=== PATIENT | male | born 1960 | race African-American/Black ===

== ENCOUNTER 2020-07-15 11:55 | Emergency (ER) | payer BC, SELFPAY ==
[2020-07-15 12:16] VITALS: BP 159/92; PULSE 94; RESP 20; TEMP 36.6; O2SAT 99
--- NOTE | 2020-07-15 12:26 | ED.GENADULT ---
HPI - General Adult General Chief complaint: Dental/Oral Stated complaint: Dental/Oral Time Seen by Provider: 07/15/20 12:27 Source: patient Mode of arrival: ambulatory Limitations: no limitations History of Present Illness HPI narrative: 60-year-old male patient presents to the [facility] with complaints of right upper dental pain x1 week. Patient states he has had issues with his teeth before and has had multiple infections and has had multiple teeth pulled. Patient states is been bothering him for about a week now and he has been taking some Aleve for the pain which has helped at times. Denies any fevers, body aches or chills. Related Data Allergies Allergy/AdvReac Type Severity Reaction Status Date / Time No Known Allergies Allergy Verified 07/15/20 12:32 Review of Systems Review of Systems: Narrative: CONSTITUTIONAL: Denies fever, chills, or sweats. EYES: Denies visual changes, redness, or discharge. ENT: Denies rhinorrhea, congestion, sore throat, or otalgia. Positive right upper dental pain x1 week CARDIOVASCULAR: Denies chest pain, palpitations, or edema. RESPIRATORY: Denies cough or dyspnea. GASTROINTESTINAL: Denies abdominal pain, nausea, vomiting, or diarrhea. GENITOURINARY: Denies dysuria or hematuria. SKIN: Denies rash or itching. MUSCULOSKELETAL: Denies back pain, joint pain, or myalgia. NEUROLOGIC: Denies headache, numbness, or weakness. PSYCHIATRIC: Denies anxiety or depression. PMFSH Past Medical History Medical History (Updated 07/15/20 @ 12:32 by JAE Tucker) No significant past medical history Social History Social History (Updated 07/15/20 @ 12:28 by JAE Tucker) Smoking status: Current every day smoker Comments At the time of my signature I agree with nursing past medical history, surgical, social, and family history. There is no relevant family history pertinent to the presenting complaint. Exam Narrative: Exam Narrative: GENERAL: Well-appearing, well-nourished, and in no acute distress. HEAD: Normocephalic, atraumatic. EYES: PERRLA and EOMI. ENT: Nares clear, no rhinorrhea or epistaxis. Mucous membranes moist. Patient has some erythema and edema noted around the gum of the right upper canine. There is no obvious abscess or discharge noted at this time. There is tenderness noted on palpitation to the gum. NECK: Supple. No lymphadenopathy CHEST: Clear to auscultation. No respiratory distress. HEART: Regular rate and rhythm. No murmur heard. Normal peripheral pulses. ABDOMEN: Soft, nontender, nondistended, normal active bowel sounds. EXTREMITIES: Normal range of motion. No edema. SKIN: Warm, dry, no rash. NEURO: No focal deficits. Alert and oriented x3. Course Vital Signs Vital signs: Vital Signs Temperature 36.6 C 07/15/20 12:16 Pulse Rate 94 07/15/20 12:16 Respiratory Rate 20 07/15/20 12:16 Blood Pressure 159/92 H 07/15/20 12:16 Pulse Oximetry 99 07/15/20 12:16 Temperature 36.6 C 07/15/20 12:16 Pulse Rate 94 07/15/20 12:16 Respiratory Rate 20 07/15/20 12:16 Blood Pressure 159/92 H 07/15/20 12:16 Pulse Oximetry 99 07/15/20 12:16 Vital signs reviewed The patient has been informed that they may have pre-hypertension or Hypertension based on a BP reading in the department. I recommend that the patient call the primary care provider listed on their discharge instructions or a physician of their choice this week to arrange follow up for further evaluation of possible pre-hypertension or Hypertension Medical Decision Making Differential Diagnosis Differential Diagnosis: Differential diagnosis: Dental caries, periodontal disease, avulsed tooth, tooth infections, mandibular infection, Dimitry's angiana, upper tooth infection, dry socket, gingivitis, acute necrotizing ulcerative gingivitis, sialolithiasis. Discussed with patient we will go ahead and discharge him home with an antibiotic to help with the infection as well as some nap
--- NOTE | 2020-07-15 12:36 | ED.GENADULT ---
HPI - General Adult General Chief complaint: Dental/Oral Stated complaint: Dental/Oral Time Seen by Provider: 07/15/20 12:27 Source: patient Mode of arrival: ambulatory Limitations: no limitations Related Data Allergies Allergy/AdvReac Type Severity Reaction Status Date / Time No Known Allergies Allergy Verified 07/15/20 12:32 [facility] Past Medical History Medical History (Updated 07/15/20 @ 12:32 by JAE Tucker) No significant past medical history Social History Social History (Updated 07/15/20 @ 12:28 by JAE Tucker) Smoking status: Current every day smoker Course Vital Signs Vital signs: Vital Signs Temperature 36.6 C 07/15/20 12:16 Pulse Rate 94 07/15/20 12:16 Respiratory Rate 20 07/15/20 12:16 Blood Pressure 159/92 H 07/15/20 12:16 Pulse Oximetry 99 07/15/20 12:16 Temperature 36.6 C 07/15/20 12:16 Pulse Rate 94 07/15/20 12:16 Respiratory Rate 20 07/15/20 12:16 Blood Pressure 159/92 H 07/15/20 12:16 Pulse Oximetry 99 07/15/20 12:16 Medical Decision Making Vital Signs Vital Signs: Vital Signs Temperature 36.6 C 07/15/20 12:16 Pulse Rate 94 07/15/20 12:16 Respiratory Rate 20 07/15/20 12:16 Blood Pressure 159/92 H 07/15/20 12:16 Pulse Oximetry 99 07/15/20 12:16 Temperature 36.6 C 07/15/20 12:16 Pulse Rate 94 07/15/20 12:16 Respiratory Rate 20 07/15/20 12:16 Blood Pressure 159/92 H 07/15/20 12:16 Pulse Oximetry 99 07/15/20 12:16 Discharge Plan Discharge Clinical Impression: Dental infection Patient Disposition: Home, Self-Care Condition: Stable Instructions: Antibiotic Form, Gingivostomatitis (ED) Additional Instructions: Antibiotic as directed Avoid temperature extremes May apply heat or ice to the face Gentle brushing and flossing Alternate Tylenol and ibuprofen as needed for pain Follow-up with the dentist as soon as possible--see the list provided Prescriptions: New amoxicillin-pot clavulanate [Augmentin] 875-125 mg tablet 1 tablet PO Q12H 7 Days Qty: 14 RF: 0 naproxen 500 mg tablet 500 mg PO BID PRN (Reason: pain) Qty: 14 RF: 0 Follow-up/Referrals: PHYSICIAN,FITNESS TRAINER [Primary Care Provider] - Time of Disposition: 12:33
== END 2020-07-15 12:35 | disposition home or self-care (01) ==
PROVIDERS: Emergency Provider Nurse Practitioner Family
DX: K04.7 Periapical abscess without sinus (principal); F17.200 Nicotine dependence, unspecified, uncomplicated
CPT/HCPCS: 99213; G0463